=== PATIENT | male | born 1960 | race Caucasian/White ===

== ENCOUNTER 2016-06-29 08:55 | Inpatient (IN) | payer BC, MEDICARE ==
[~2016-06-29] VITALS: Ht 177.8 cm; Wt 107.6 kg
== END 2016-07-04 13:40 | disposition home or self-care (01) | DRG 371 ==
LOC: ER 08:55 → MED 12:19
PROVIDERS: ADMIT Internal Medicine
DX: A04.4 Other intestinal Escherichia coli infections (principal); E13.10 Other specified diabetes mellitus with ketoacidosis without coma; E87.1 Hypo-osmolality and hyponatremia; N39.0 Urinary tract infection, site not specified; A08.11 Acute gastroenteropathy due to Norwalk agent; I10 Essential (primary) hypertension; K21.9 Gastro-esophageal reflux disease without esophagitis; T36.1X5A Adverse effect of cephalosporins and other beta-lactam antibiotics, initial encounter; G43.909 Migraine, unspecified, not intractable, without status migrainosus; E78.5 Hyperlipidemia, unspecified; Z79.02 Long term (current) use of antithrombotics/antiplatelets; Z79.4 Long term (current) use of insulin; Z79.899 Other long term (current) drug therapy; Z88.5 Allergy status to narcotic agent; Z88.0 Allergy status to penicillin; Z88.2 Allergy status to sulfonamides; Z90.49 Acquired absence of other specified parts of digestive tract; E83.42 Hypomagnesemia; E83.39 Other disorders of phosphorus metabolism; E86.0 Dehydration
CPT/HCPCS: 36415; 87507; J0696; J0713; J1650; J2550; J7050; Q9963; Q9967

== ENCOUNTER 2016-06-29 08:55 | Emergency (ER) | payer MEDICARE | END 2016-06-29 12:18 | disposition critical access hospital (66) | LOC: ER 08:55 | DX: E86.0 Dehydration (principal); R10.9 Unspecified abdominal pain; E10.9 Type 1 diabetes mellitus without complications; J45.909 Unspecified asthma, uncomplicated; F41.9 Anxiety disorder, unspecified; F17.210 Nicotine dependence, cigarettes, uncomplicated; Z90.49 Acquired absence of other specified parts of digestive tract; Z79.899 Other long term (current) drug therapy; Z88.0 Allergy status to penicillin; Z88.2 Allergy status to sulfonamides; Z88.5 Allergy status to narcotic agent | CPT/HCPCS: 36415; 96361; 96374; 96375; J2550 ==